=== PATIENT | male | born 1980 | race Caucasian/White ===

== ENCOUNTER → 2017-09-18 11:22 | Outpatient (CLI) | payer OTHER, SELFPAY ==
--- NOTE | 2017-09-18 | DI.RAD.S_ITS ---
PROCEDURE: XR HAND RT MIN 3V INDICATIONS: RT HAND TRAUMA TECHNIQUE: 3 views of the hand(s) acquired. COMPARISON: None. FINDINGS: Bones: No fractures or dislocations. Carpal bones are normally aligned. No suspicious bony lesions. Soft tissues: No suspicious soft tissue calcifications. IMPRESSION: Negative for fracture Dictated by: Andres Murphy M.D. on 09/18/2017 at 11:54 Approved by: Andres Murphy M.D. on 09/18/2017 at 11:56
== END ==
PROVIDERS: Visit Provider Family Medicine
DX: S69.91XA Unspecified injury of right wrist, hand and finger(s), initial encounter (principal)
CPT/HCPCS: 73130

== ENCOUNTER → 2019-12-29 12:49 | Outpatient (CLI) | payer OTHER, SELFPAY ==
--- NOTE | 2019-12-29 | DI.RAD.S_ITS ---
PROCEDURE: XR ANKLE RT MIN 3V INDICATIONS: Pain in right ankle and joints of right foot TECHNIQUE: 3 views of the ankle were acquired. COMPARISON: None. FINDINGS: Bones: Osseous density seen adjacent to the tip of the medial malleolus.. Ankle mortise is normally aligned. No suspicious bony lesions. Soft tissues: No tibiotalar joint effusion. Achilles tendon appears normal. IMPRESSION: Osseous density adjacent to the tip of the medial malleolus which may be related to an old fracture; however acute avulsion fracture cannot be excluded and clinical correlation to point tenderness is recommended. Dictated by: Jh Shea [facility] Interpreted: Gary Dowell MD on 12/29/2019 at 13:29 Approved by: Gary Dowell M.D. on 12/29/2019 at 15:53
== END ==
PROVIDERS: PCP Family Medicine
DX: M25.571 Pain in right ankle and joints of right foot (principal)
CPT/HCPCS: 73610